=== PATIENT | male | born 1980 | race Native Hawaiian/Other Pacific Islander ===

== ENCOUNTER 2019-03-05 03:21 | Outpatient (CLI) | payer OTHER | END 2019-03-05 03:41 | disposition short-term general hospital (02) | LOC: AMB 03:21 | DX: R06.02 Shortness of breath (principal); R53.83 Other fatigue | CPT/HCPCS: A0425; A0429 ==

== ENCOUNTER 2019-03-05 03:49 | Emergency (ER) | payer OTHER ==
[~2019-03-05] VITALS: Ht 205.7 cm; Wt 86.2 kg
[2019-03-05 04:50] VITALS: BP 127/84; TEMP 98.1
== END 2019-03-05 04:50 | disposition home or self-care (01) ==
LOC: ED 03:49
DX: R06.2 Wheezing (principal); L55.9 Sunburn, unspecified; T14.8XXA Other injury of unspecified body region, initial encounter; W57.XXXA Bitten or stung by nonvenomous insect and other nonvenomous arthropods, initial encounter; Z59.0 Homelessness
CPT/HCPCS: 99283; J0696